=== PATIENT | male | born 1995 | race Caucasian/White ===

== ENCOUNTER 2017-02-08 13:56 | Emergency (ER) | payer MEDICAID | END 2017-02-08 16:30 | disposition home or self-care (01) | LOC: D.ER 13:56 | DX: M54.5 Low back pain (principal); S39.012A Strain of muscle, fascia and tendon of lower back, initial encounter; X58.XXXA Exposure to other specified factors, initial encounter; Y93.89 Activity, other specified; Y92.89 Other specified places as the place of occurrence of the external cause ==

== ENCOUNTER 2017-02-10 21:14 | Emergency (ER) | payer MEDICAID | END 2017-02-10 22:38 | disposition home or self-care (01) | LOC: D.ER 21:14 | DX: S39.012A Strain of muscle, fascia and tendon of lower back, initial encounter (principal); X58.XXXA Exposure to other specified factors, initial encounter; Y93.89 Activity, other specified; Y92.89 Other specified places as the place of occurrence of the external cause; M54.5 Low back pain ==

== ENCOUNTER 2017-08-29 15:47 | Emergency (ER) | payer MEDICAID ==
[~2017-08-29] VITALS: Ht 172.7 cm; Wt 72.7 kg
[2017-08-29 16:39] VITALS: Ht 172.7 cm; Wt 72.7 kg
[2017-08-29] MEDS ORDERED: VOLTAREN75 MG PO (21:01)
[2017-08-29] MEDS ORDERED: NORCO 7.5/325 T1 TA1 PO (21:01)
[2017-08-29 21:24] VITALS: BP 100/63
[2017-10-15 15:53] VITALS: Ht 172.7 cm; Wt 72.7 kg
== END 2017-08-29 21:25 | disposition home or self-care (01) ==
LOC: D.ER 15:47
DX: S62.91XA Unspecified fracture of right hand, initial encounter for closed fracture (principal); W22.01XA Walked into wall, initial encounter; Y93.89 Activity, other specified; Y92.019 Unspecified place in single-family (private) house as the place of occurrence of the external cause

== ENCOUNTER 2017-09-02 13:50 | Emergency (ER) | payer MEDICAID ==
[~2017-09-02] VITALS: Ht 172.7 cm; Wt 71.8 kg
[~2017-09-02 13:50] MED LIST: NORCO 7.5/325 T1 TA1 PO; VOLTAREN75 MG PO
[2017-09-02 14:06] VITALS: Ht 172.7 cm; Wt 71.8 kg
[2017-09-02] MEDS ORDERED: HYDROCODONE-APA1 TAB PO (15:28)
[2017-09-02 15:45] VITALS: BP 128/062
[2017-10-15 15:53] VITALS: Ht 172.7 cm; Wt 71.8 kg
== END 2017-09-02 15:45 | disposition home or self-care (01) ==
LOC: D.ER 13:50
DX: S62.396G Other fracture of fifth metacarpal bone, right hand, subsequent encounter for fracture with delayed healing (principal); X58.XXXD Exposure to other specified factors, subsequent encounter

== ENCOUNTER 2017-09-05 11:49 | Emergency (ER) | payer MEDICAID ==
[~2017-09-05] VITALS: Ht 172.7 cm; Wt 71.8 kg
[~2017-09-05 11:49] MED LIST changes: +HYDROCODONE-APA1 TAB PO
[2017-09-05 12:16] VITALS: Ht 172.7 cm; Wt 71.8 kg
[2017-09-05] MEDS ORDERED: ULTRAM50 MG PO (14:22)
[2017-09-05 14:42] VITALS: BP 132/63
[2017-10-15 15:53] VITALS: Ht 172.7 cm; Wt 71.8 kg
== END 2017-09-05 14:43 | disposition home or self-care (01) ==
LOC: D.ER 11:49
DX: S62.91XG Unspecified fracture of right hand, subsequent encounter for fracture with delayed healing (principal); X58.XXXD Exposure to other specified factors, subsequent encounter

== ENCOUNTER 2017-09-11 10:30 | Day surgery (SDC) | payer SELFPAY ==
[~2017-09-11] VITALS: Ht 172.7 cm; Wt 71.7 kg
--- NOTE | ~2017-09-11 | OP ---
PATIENT NAME: FERMIN FRANCISCO MEDICAL RECORD: [id number] :95 LOCATION:[facility] ADMISSION DATE: SURGEON: JESS ZAMBRANO DO DATE OF OPERATION: 09/11/2017 PROCEDURE PERFORMED: Right fifth metacarpal shaft open reduction internal fixation. PREOPERATIVE DIAGNOSIS: Right displaced fifth metacarpal shaft fracture. POSTOPERATIVE DIAGNOSIS: Right displaced fifth metacarpal shaft fracture. INDICATIONS: Mr. Francisco is a 22-year-old male presented to the ER after striking a wall with his right hand, was seen to have a fifth metacarpal fracture and then came to my office. The patient had been put in a splint, but had been removing it. X-rays were taken and seeing that his fifth metacarpal shaft was angulated greater than 50 degrees, and this was unacceptable as far as tolerance, and due to the fact that he had removed a splint and likely would do the same with another splint, and the fact that it was not within tolerance the angulation of his fracture, which was apex dorsal. I informed him that the best option will be to plate and screws to have a solid fixation, so it would not move and that he could use his hand more quickly. He is aware that he would not be able to lift anything and he is aware of the risks and benefits of the procedure including infection, bleeding, need for further surgery, he was okay with that and consented to the procedure. DESCRIPTION OF PROCEDURE: The patient was taken to the operative suite, laid in the supine position after given a block by anesthesia in the preoperative area. The right upper extremity was prepped and draped in sterile fashion with a tourniquet under the drapes above the elbow. After he was prepped and draped, a timeout was performed. Everyone was in agreement of correct side, site and patient and procedure. The incision then was marked out over the fifth metacarpal and the right upper extremity was exsanguinated with an Esmarch and the tourniquet was inflated to 250 mmHg, it was up for 16 minutes total during the procedure. Once the tourniquet was inflated, careful dissection was made down with a 15-blade scalpel, cutting the skin and then a Metzenbaum scissors and a pickup were used to dissect down to the fracture site itself. Fracture was encountered and cleaned up with a freer. Then, a 4-hole plate from the [employer] was used. The screws were put in on the proximal part first and then put into place and then distally the reduction was held and eccentric hole was drilled, in the first hole, on the distal part, and a screw was put into place and compressed nicely at the fracture site and then the most distal screw was put into place. After this was done, the first screw that was put in on the proximal piece, this was nearest the fracture site, was exchanged out due to the length was too long. Once this was adequate, I measured and x-rays were taken, AP and lateral, and oblique views, seen to have a good fracture reduction. The plate was in good position as well as the screws. Tourniquet was let down at 16 minutes. All bleeding was coagulated at time with a pickup and a Bovie, and the skin was closed with 5-0 Monocryl in inverted interrupted fashion and 5-0 Monocryl ran on the skin and glue was put on the skin. Then, Adaptic, 4 x 4s, and cast padding was placed on the patient and placed into an ulnar gutter splint. He was then awakened and taken to recovery in stable condition. Blood loss was minimal. COMPLICATIONS: None. OPERATIVE REPORT [id number] FERMIN FRANCISCO TRANSKALPESH:[id number] Voice Confirmation ID: [id number] DOCUMENT ID: [id number] JESS ZAMBRANO DO at 0824 CC: [id number] DICTATION DATE: 09/11/17 1529 BRANCH ADMINISTRATOR: 09/11/17 1648 [facility] 09/11/17 [place] [id number]
[~2017-09-11 10:30] MED LIST changes: +ULTRAM50 MG PO
[2017-09-11 11:33] VITALS: BP 101/59; Ht 172.7 cm; Wt 71.7 kg
[2017-09-11] MEDS ORDERED: PERCOCET 7.5/321 TAB PO (14:19)
[2017-09-11] MEDS ORDERED: VISTARIL50 MG PO (14:19)
[2017-09-11] MEDS ORDERED: VIBRAMYCIN 100100 MG PO (14:19)
== END 2017-09-11 17:05 | disposition home or self-care (01) ==
LOC: D.OPS 10:30 → D.PAN 13:55 → D.OPS 14:00 → D.PAN 14:00 → D.OPS 14:30 → D.PAN 14:30 → D.OPS 17:05
DX: S62.326A Displaced fracture of shaft of fifth metacarpal bone, right hand, initial encounter for closed fracture (principal); X58.XXXA Exposure to other specified factors, initial encounter; Z01.812 Encounter for preprocedural laboratory examination

== ENCOUNTER 2017-10-15 15:36 | Emergency (ER) | payer MEDICAID ==
[~2017-10-15] VITALS: Ht 172.7 cm; Wt 71.7 kg
[~2017-10-15 15:36] MED LIST changes: +PERCOCET 7.5/321 TAB PO; +VIBRAMYCIN 100100 MG PO; +VISTARIL50 MG PO
[2017-10-15 15:53] VITALS: BP 104/67; Ht 172.7 cm; Wt 71.7 kg
== END 2017-10-15 16:58 | disposition home or self-care (01) ==
LOC: D.ER 15:36
DX: S62.306A Unspecified fracture of fifth metacarpal bone, right hand, initial encounter for closed fracture (principal); W18.2XXA Fall in (into) shower or empty bathtub, initial encounter; Y93.E1 Activity, personal bathing and showering; Y92.012 Bathroom of single-family (private) house as the place of occurrence of the external cause; F90.9 Attention-deficit hyperactivity disorder, unspecified type; F41.9 Anxiety disorder, unspecified

== ENCOUNTER 2018-03-15 23:26 | Emergency (ER) | payer MEDICAID ==
[~2018-03-15] VITALS: Ht 172.7 cm; Wt 72.7 kg
[2018-03-15 23:41] VITALS: Ht 172.7 cm; Wt 72.7 kg
[2018-03-16] MEDS ORDERED: TORADOL10 MG PO (02:09)
[2018-03-16 02:15] VITALS: BP 126/69
== END 2018-03-16 02:16 | disposition home or self-care (01) ==
LOC: D.ER 23:26
DX: S41.112A Laceration without foreign body of left upper arm, initial encounter (principal); W25.XXXA Contact with sharp glass, initial encounter; Y93.89 Activity, other specified; Y92.019 Unspecified place in single-family (private) house as the place of occurrence of the external cause

== ENCOUNTER 2018-07-27 15:19 | Emergency (ER) | payer MEDICAID ==
[~2018-07-27] VITALS: Ht 172.7 cm; Wt 65.9 kg
[~2018-07-27 15:19] MED LIST changes: +TORADOL10 MG PO
[2018-07-27 15:30] VITALS: BP 103/69; Ht 172.7 cm; Wt 65.9 kg
[2018-07-27 16:00] LABS: BASOPHILS 0.1 % (0-2); EOSINOPHILS 0.2 % (0-7); HEMATOCRIT 45.9 % (42.0-54.0); HEMOGLOBIN 16.3 g/dL (13.5-17.5); IMMATURE GRANULOCYTES 0.1 % (0-5); LYMPHOCYTES 8.3 % (15-50); MCH 30.7 pg (26.0-34.0); MCHC 35.5 g/dL (31.0-37.0); MCV 86.4 fL (80.0-100.0); MEAN PLATELET VOLUME 9.2 fL (7.4-10.4); MONOCYTES 6.5 % (2-11); NEUTROPHILS 84.8 % (40-80); PLATELET COUNT 212 10x3/uL (130-400); RBC 5.31 10x6/uL (4.20-6.10); RDW 12.2 % (11.5-14.5); WBC 8.7 10x3/uL (4.8-10.8)
[2018-07-27 16:08] LABS: APPEARANCE CLEAR (CLEAR); BILIRUBIN NEGATIVE (NEGATIVE); COLOR YELLOW (YELLOW); GLUCOSE NEGATIVE (NEGATIVE); KETONE NEGATIVE (NEGATIVE); NITRITE NEGATIVE (NEGATIVE); PROTEIN NEGATIVE (NEGATIVE); SPECIFIC GRAVITY 1.015 (1.005-1.020); UROBILINOGEN NORMAL (NORMAL)
--- NOTE | 2018-07-27 16:16 | NUR ---
DR. LANGLEY NOTIFIED AND REVIEWED PT'S BEHAVIOR AND ASSESSMENT RESULTS. PT IS A LOW RISK PER DR. LANGLEY. DR. LANGLEY STATED TO GIVE RESOURCES TO PT AT THIS TIME OF DISCHARGE. NO FURTHER ORDERS AT THIS TIME. RESOURCES REVIEWED WITH PT AND HE VERBALIZED UNDERSTANDING.
[2018-07-27 16:17] LABS: UDS - AMPHET NEGATIVE QUAL (NEGATIVE); UDS - BARB NEGATIVE QUAL (NEGATIVE); UDS - BENZO NEGATIVE QUAL (NEGATIVE); UDS - COCAINE NEGATIVE QUAL (NEGATIVE); UDS - OPIATE NEGATIVE QUAL (NEGATIVE); UDS - PCP NEGATIVE QUAL (NEGATIVE); UDS - THC NEGATIVE QUAL (NEGATIVE)
[2018-07-27 16:23] LABS: ALBUMIN 3.6 g/dL (3.4-5.0); ALKALINE PHOSPHATASE 38 U/L (46-116); ALT (SGPT) 22 U/L (10-68); BILIRUBIN - TOTAL 0.49 mg/dL (0.2-1.3); CALC OSMOLALITY 285 mosm/kg (275-300); CALCIUM 8.7 mg/dL (8.5-10.1); CARBON DIOXIDE 29.8 mmol/L (21.0-32.0); CHLORIDE - SERUM 106 mmol/L (98-107); GLUCOSE 97 mg/dL (74-106); MAGNESIUM - SERUM 1.9 mg/dL (1.8-2.4); POTASSIUM - SERUM 3.9 mmol/L (3.5-5.1); PROTEIN - SERUM 6.1 g/dL (6.4-8.2); SODIUM 144 mmol/L (136-145); UREA NITROGEN 10 mg/dL (7-18); eGFR NON AFRICAN AMERICAN > 90 mL/min (90-120)
== END 2018-07-27 18:30 | disposition home or self-care (01) ==
LOC: D.ER 15:19
PROVIDERS: Family Medicine
DX: F41.9 Anxiety disorder, unspecified (principal); R45.87 Impulsiveness

== ENCOUNTER 2018-11-25 15:43 | Emergency (ER) | payer MEDICAID ==
[~2018-11-25] VITALS: Ht 172.7 cm; Wt 70.5 kg
[2018-11-25 16:06] VITALS: Ht 172.7 cm; Wt 70.5 kg
[2018-11-25] MEDS ORDERED: ACETAMINOPHEN500 M1 PO (16:12)
[2018-11-25] MEDS ORDERED: IBUPROFEN200 MG PO (16:12)
[2018-11-25] MEDS ORDERED: VOLTAREN75 MG PO (17:02)
[2018-11-25] MEDS ORDERED: BACLOFEN20 M1 PO (17:02)
[2018-11-25] MEDS ORDERED: TALWIN NX1 TAB PO (18:26)
[2018-11-25] MEDS ORDERED: PREDNISONE20 MG PO (18:26)
[2018-11-25 18:57] VITALS: BP 102/65
== END 2018-11-25 18:58 | disposition home or self-care (01) ==
LOC: D.ER 15:43
DX: M54.5 Low back pain (principal); W19.XXXA Unspecified fall, initial encounter